=== PATIENT | female | born 1945 | race Asian ===

== ENCOUNTER 2017-02-26 09:47 | Emergency (ER) | payer MEDICARE, OTHER ==
[~2017-02-26] VITALS: Ht 162.6 cm; Wt 68.0 kg
[2017-02-26] MEDS ORDERED: EZET10 PO (10:11)
[2017-02-26] MEDS ORDERED: Benicar Hct 201 EACH PO (10:11)
[2017-02-26] MEDS ORDERED: Robaxin500 MG PO (10:11)
[2017-02-26] MEDS ORDERED: Voltaren100 GM TOP (10:11)
[2017-02-26] MEDS ORDERED: Crestor40 MG PO (10:11)
== END 2017-02-26 10:24 | disposition home or self-care (01) ==
LOC: ER 09:47
DX: Z76.0 Encounter for issue of repeat prescription (principal); G89.29 Other chronic pain; M54.5 Low back pain; I10 Essential (primary) hypertension; E78.00 Pure hypercholesterolemia, unspecified; Z79.899 Other long term (current) drug therapy
CPT/HCPCS: 99283